=== PATIENT | female | born 1975 | race Caucasian/White ===

== ENCOUNTER 2017-01-30 13:52 | Emergency (ER) | payer OTHER ==
--- NOTE | ~2017-01-30 | CT4 ---
[facility] of [facility] & [facility] RADIOLOGY TEXT RESULTS PATIENT: ANNA MARY LOCATION: SED : 73 UNIT #: [id number] AGE: [address]: Collin Pastrana MD SEX: F ORDER DR: [id number] [place] [id number] E MR#: [id number] Acc #: [id number] NAME: ANNA MARY : 1975 SEX: F STUDY DATE/TIME: 01/30/2017 15:10 UNIT: SED ROOM: STUDY DESCRIPTION: CT Abd and Pelv Wo Cont Attending Physician: Collin Pastrana M.D. Ordering Physician: Collin Pastrana M.D. Primary Care Physician: Bhavik Bahena M.D. MEDICAL IMAGING REPORT This report is preliminary unless electronic signature is present. EXAM CT abdomen and pelvis, 01/30 INDICATION Sharp right side abdominal pain with nausea for 1 week. TECHNIQUE Axial images were obtained through the abdomen and pelvis without contrast. Multiplanar reformats were obtained. This CT exam was performed with one or more of the following radiation dose reduction techniques: automatic exposure control, adjustment of mA and/or kV according to patient size, and iterative reconstruction. COMPARISON No comparison abdomen or pelvis CT. FINDINGS ABDOMEN: Lung bases are clear. Gallbladder is contracted. There are small bilateral nonobstructing renal stones. The largest is on the right side measuring 6.0-7.0 mm. No ureteral stones are seen on either side and there is no hydronephrosis. The unenhanced solid organs are otherwise normal. Unopacified GI tract is normal. PELVIS: There are no lower ureteral stones. The bladder is normal. The appendix does contain an appendicolith but it is otherwise normal. There is no evidence of acute appendicitis. There is a large right adnexal cyst which is presumably ovarian. This measures up to 6.2 cm in size. Followup with pelvic ultrasound in 6 weeks is recommended. IMPRESSION 1. Bilateral nonobstructing kidney stones. No ureteral stones are seen, and there is no hydronephrosis. [facility] of [facility] & [facility] RADIOLOGY TEXT RESULTS PATIENT: ANNA MARY LOCATION: SED : [birth year] UNIT #: [id number] AGE: [address]: Collin Pastrana MD SEX: F ORDER DR: 2. There is an appendicolith within an otherwise normal-appearing appendix. No convincing evidence of acute appendicitis at this time. GI tract is otherwise within normal limits. 3. 6.2 cm right ovarian cyst. Pelvic ultrasound suggested for followup in about 6 weeks. Dictated by... Pepito Jimenez Jr., M.D. THIS IS AN ELECTRONICALLY VERIFIED REPORT Pepito Jimenez Jr., M.D. at 01/31/2017 7:16 AM DAMARIS/larry TD: 01/30/2017 16:40 JOB #: [id number] MEDICAL IMAGING REPORT Page 1 of 1
[~2017-01-30 13:52] MED LIST: AMBIEN10 MG PO; ATARAX PO; LORTAB 7.5-5001 TAB PO; VOLTAREN75 MG PO; XANAX1 MG PO
[2017-01-30] MEDS ORDERED: LORTAB 10-3251 EACH PO (13:55)
[2017-01-30] MEDS ORDERED: PROZAC (13:55)
[2017-01-30 14:33] LABS: BASOPHIL# 0.1 X10e3 (0-0.3); BASOPHIL% 1.2 % (0-2.5); EOSINOPHIL# 0.2 X10e3 (0-0.7); EOSINOPHIL% 1.9 % (0.0-7.0); HEMATOCRIT 37.8 % (35.0-45.0); HEMOGLOBIN 13.4 gm/dL (12.0-16.0); LYMPHOCYTE# 2.7 X10e3 (1.0-3.5); LYMPHOCYTE% 31.8 % (17.0-45.0); MEAN CELL VOLUME 88.7 FL (83-96); MEAN CORPUSCULAR HEMOGLOBIN 31.4 PG (28-34); MEAN CORPUSCULAR HGB CONC 35.4 g/dL (30-36); MEAN PLATELET VOLUME 7.8 FL (6.5-11.5); MONOCYTE# 0.5 X10e3 (0-1.0); MONOCYTE% 6.1 % (3.0-12.0); PLATELET COUNT 252 X10e3 (140-420); RED BLOOD COUNT 4.26 X10e (3.90-5.30); WHITE BLOOD COUNT 8.4 X10e3 (4.0-10.5)
[2017-01-30 14:34] LABS: DIFF IND NO
[2017-01-30 14:36] LABS: URINE SOURCE CLEAN CATCH
[2017-01-30 14:39] LABS: URINE APPEARANCE CLEAR; URINE BILIRUBIN NEG (NEG); URINE BLOOD TRACE-INTACT (NEG); URINE COLOR YELLOW; URINE GLUCOSE NEG (NORM); URINE KETONE NEG (NEG); URINE LEUKOCYTE ESTERASE NEG (NEG); URINE NITRATE NEG (NEG); URINE PROTEIN NEG (NEG); URINE UROBILINOGEN 0.2 MG/DL (NORM)
[2017-01-30 14:41] LABS: MICRO INDICATED? YES
[2017-01-30 14:49] LABS: CULTURE INDICATED? NO; URINE BACTERIA NEG (NEG); URINE RBC 0-2 /[HPF] (0-2); URINE WBC 0-2 /[HPF] (0-5)
[2017-01-30 14:53] LABS: ALBUMIN SERUM 3.9 g/dL (3.5-5.0); ALKALINE PHOSPHATASE 75 U/L (32-92); ALT (SGPT) 30 U/L (10-40); AMYLASE 7 U/L (0-46); AST (SGOT) 25 U/L (10-42); BILIRUBIN,TOTAL 0.3 mg/dL (0.2-2.0); BLOOD UREA NITROGEN 15 mg/dL (9-23); BUN/CREATININE RATIO 21.42; CALCIUM SERUM 8.7 mg/dL (8.4-10.2); CARBON DIOXIDE 26 mmol/L (22-31); CHLORIDE 104 mmol/L (100-111); CREATININE SERUM 0.7 mg/dL (0.6-1.4); GLOM FILT RATE Estimated 106.9 mL/min (>60); GLUCOSE FASTING 140 mg/dL (70-110); LIPASE 43 U/L (22-51); POTASSIUM 3.9 mmol/L (3.5-5.1); PROTEIN TOTAL SERUM 7.1 g/dL (6.0-8.3); SODIUM 135 mmol/L (135-145)
[2017-01-30 14:57] LABS: BILIRUBIN, DIRECT <0.1 mg/dL (0.0-0.2); BILIRUBIN,INDIRECT 0.2 mg/dL (0.0-0.9)
== END 2017-01-30 16:42 | disposition home or self-care (01) ==
LOC: SED 13:52
PROVIDERS: Emergency Medicine
DX: N83.201 Unspecified ovarian cyst, right side (principal)
CPT/HCPCS: 36415; 74176; 80048; 80076; 81003; 82150; 83690; 84703; 85025; 96361; 96374; 99284; J2405